=== PATIENT | female | born 1955 | race Caucasian/White ===

== ENCOUNTER → 2017-01-02 | Outpatient (CLI) | payer MEDICAID ==
--- NOTE | 2017-01-03 10:43 | RADIOLOGY REPORT PS360 ---
MRI-LOW EXT ANY JOINT W/O-LT HISTORY: Left knee pain, posterior knee pain and swelling, posterior lateral side knee pain radiating down the side of the tib-fib laterally LEFT KNEE PAIN ORDERING PHYSICIAN: Po Qureshi MD PATIENT AGE: 61 years COMPARISON: Radiograph of 12/25/2016 TECHNIQUE: Standard multiplanar multiecho sequences are performed without contrast. FINDINGS: The cruciate ligaments, collateral ligaments, patellar tendon, and quadriceps tendon have an unremarkable appearance. No evidence of meniscal tear. Patellar cartilage is preserved. No bone marrow edema. No fracture or dislocation. The joint spaces are well-preserved no significant effusion IMPRESSION: Negative MRI of the left knee.
== END ==
LOC: RAD 08:21
DX: M25.562 Pain in left knee (principal)